=== PATIENT | male | born 1940 | race Caucasian/White ===

== ENCOUNTER 2021-05-02 00:53 | Outpatient (REF) | payer SELFPAY | END 2021-05-02 00:54 | disposition home or self-care (01) | LOC: HO.MMNH1L 00:53 | PROVIDERS: Visit Provider Family Medicine | DX: Z13.89 Encounter for screening for other disorder (principal) ==

== ENCOUNTER 2021-05-16 01:06 | Outpatient (REF) | payer SELFPAY | END 2021-05-16 01:07 | disposition home or self-care (01) | LOC: HO.MMNH1L 01:06 | PROVIDERS: Visit Provider Family Medicine | DX: Z13.89 Encounter for screening for other disorder (principal) ==

== ENCOUNTER 2021-05-23 00:43 | Outpatient (REF) | payer MEDICARE, SELFPAY | END 2021-05-23 00:44 | disposition home or self-care (01) | LOC: HO.MMNH1L 00:43 | PROVIDERS: Visit Provider Family Medicine | DX: Z13.89 Encounter for screening for other disorder (principal) ==

== ENCOUNTER 2021-06-02 14:11 | Emergency (ER) | payer OTHER, MEDICARE, SELFPAY ==
[2021-06-02 14:22] VITALS: BP 105/68; BP 91/40; PULSE 65; PULSE 68; RESP 16; TEMP 36.6; O2SAT 95; BMI 33.8
--- NOTE | 2021-06-02 14:25 | ECG_ITS ---
Test Reason : GEN MED Blood Pressure : / mmHG Vent. Rate : 065 BPM Atrial Rate : 000 BPM P-R Int : 000 ms QRS Dur : 088 ms QT Int : 458 ms P-R-T Axes : 000 -31 -02 degrees QTc Int : 476 ms Atrial fibrillation Left axis deviation Nonspecific T wave abnormality Prolonged QT Abnormal ECG No previous ECGs available Referred By: Elvira Bear Electronically Signed By:Adam Cordero
--- NOTE | 2021-06-02 14:43 | PC.NURSE ---
[facility] [phone]
--- NOTE | 2021-06-02 14:46 | ED.GENADULT ---
HPI - General Adult General Chief complaint: Recheck/Abnormal Lab/Rx Stated complaint: HYPOTENSION DURING DIALYSIS Time Seen by Provider: 06/02/21 14:24 History of Present Illness HPI narrative: Patient is an 81-year-old male with a history in stage renal disease currently on dialysis Sunday. Received his full dialysis on Sunday. Was at dialysis today. Noted to have a low blood pressure of 70/40 initially. Patient has no complaint of chest pain or shortness of breath no dizziness no nausea no vomiting also smoke a cigarette. Has a history of smoking. Has a history of atrial fibrillation. Patient is on Plavix. No other changes in medication no fever no chills no cough no congestion or upper respiratory symptoms no diaphoresis. Patient was on dialysis for about an hour and half sent to hospital for further evaluation of low blood pressure. Related Data Home Medications Medication Instructions Recorded Confirmed acetaminophen 325 mg tablet 650 mg PO Q6H PRN 03/29/20 03/29/20 allopurinol 100 mg tablet 100 mg PO BID 03/29/20 03/29/20 amlodipine 10 mg tablet 10 mg PO DAILY 03/29/20 03/29/20 aspirin 81 mg tablet 81 mg PO DAILY 03/29/20 03/29/20 atorvastatin 40 mg tablet 40 mg PO DAILY 03/29/20 03/29/20 clopidogrel 75 mg tablet 75 mg PO DAILY 03/29/20 03/29/20 ferrous sulfate 325 mg (65 mg mg 03/29/20 iron) tablet folic acid 1 mg tablet 1 mg PO DAILY 03/29/20 03/29/20 metoprolol succinate 50 mg 50 mg PO DAILY 03/29/20 03/29/20 tablet,extended release 24 hr multivitamin 1 tab PO QAM 03/29/20 03/29/20 torsemide 20 mg tablet 20 mg PO DAILY 03/29/20 03/29/20 Allergies Allergy/AdvReac Type Severity Reaction Status Date / Time No Known Allergies Allergy Verified 03/29/20 14:40 [No Known Allergies*] Review of Systems Review of Systems: Positive for low blood pressure no chest pain or shortness breath no dizziness no nausea no vomiting no systemic complaints Yes all other systems are reviewed and are negative PMFSH Past Medical History Attestation statement: The following information was validated with the patient. Medical History Macrocytic anemia MDS (myelodysplastic syndrome) Stage 3 chronic kidney disease Social History Social History Alcohol intake: current Alcohol intake frequency: 3 or more drinks per day Alcohol type: hard liquor Patient Tobacco Use Status: Current everyday Tobacco user Use of substances other than those prescribed or required for medical reasons: No Advance Directives: Yes Advance Directives Information Provided: No Advance Directives on File: No Physical Exam Vital Signs: Vital Signs: Last Vital Signs Temp 97.6 F 06/02/21 19:19 Pulse 54 06/02/21 19:19 Resp 12 06/02/21 19:19 BP 115/53 L 06/02/21 19:19 Pulse Ox 97 06/02/21 19:19 BMI result Body Mass Index 33.8 Appearance: Alert. Oriented X3. No acute distress. Eyes: Pupils equal, round and reactive to light. ENT: Pharynx normal. Neck: Normal inspection. Neck supple. No lymph nodes noted. No crepitus CVS: Normal heart rate and rhythm. Pulses normal. Normal S1 and S2 Respiratory: No respiratory distress. Breath sounds normal. No Wheezing. No rales Abdomen: Soft and nontender. No rigidity. No distention. good BS x4 Skin: Skin warm and dry. Normal skin color. Normal skin turgor. Extremities: No lower extremity edema. Neurovascular intact to all extremities. No Lacerations. No Rash Neuro: Oriented X 3. No motor deficit. No sensory deficit. Moving all extermities. No slurred speech Medical Decision Making MDM Narrative Medical decision making narrative: Patient presented with hypotension. Given a small bolus of IV fluid. Blood pressure recover nicely. Baseline electrolytes withdrawn the consistent with having end-stage renal disease. In stable condition will discharge home. Will discuss case with Nephrology. Potassium was 4.2 Lab Data Result diagrams: 06/02/21 15:09 06/02/21 18:40 Labs: Lab Results 06/02/21 06/02/21 06/02/21 Range/Units 15:09 15:16 18:40 WBC 8.7 (4.8-10.8) X10*3/uL RBC 3.58 L D (4.60-5.80) X10*6/uL Hgb 10.3 L D (14.0-18.0) g/dl Hct 33.0 L D (42.0-52.0) % MCV 92.2 (80.0-98.0) fL MCH 28.8 (27.0-33.0) pg MCHC 31.2 (31.0-36.0) g/dl RDW 17.7 H (11.0-16.0) % Plt Count 216 (160-400) X10*3/uL MPV 9.6 (9.4-12.4) fL Immature Gran % (Auto) 1.0 H (0.0-0.4) % Neut % (Auto) 72.1 (45-73) % Lymph % (Auto) 10.1 L (20-40) % [place] % (Auto) 12.6 H (2-11) % Eos % (Auto) 4.0 (0-4) % Baso % (Auto) 0.2 (0-2) % Lymph # (Auto) 0.9 L (1.2-4.9) X10*3/uL [place] # (Auto) 1.1 (0.1-1.2) X10*3/uL Eos # (Auto) 0.4 (0.0-0.4) X10*3/uL Baso # (Auto) 0.0 (0.0-0.2) X10*3/uL Abs Immat Gran (auto) 0.09 H (0.00-0.03) X10*3/uL Absolute Neuts (auto) 6.3 (2.0-8.3) x10*3/uL Absolute Nucleated RBC 0.000 (0.0-0.012) X10*3/uL Nucleated RBC % (auto) 0.0 (0.0-0.2) /100WBC VBG pH 7.45 H (7.32-7.43) VBG pCO2 40 mmHg VBG pO2 46 mmHg VBG HCO3 28 H (22-26) mmol/L VBG O2 Saturation 72.0 % VBG Base Excess 3.8 mmol/L Sodium 137 (135-145) mmol/L Potassium 4.2 (3.3-5.1) mmol/L Chloride 98 (96-108) mmol/L Carbon Dioxide 28 (22-29) mmol/L Anion Gap 15 (12-20) BUN 25 H (9-16) mg/dL Creatinine 3.82 H (0.5-1.4) mg/dL Estim Creat Clear Calc 14.4 Estimated GFR 15 Random Glucose 92 D (60-115) mg/dL Calcium 9.0 (8.4-10.2) mg/dL Magnesium 1.7 (1.6-2.6) mg/dL 06/02/21 Range/Units 18:40 WBC (4.8-10.8) X10*3/uL RBC (4.60-5.80) X10*6/uL Hgb (14.0-18.0) g/dl Hct (42.0-52.0) % MCV (80.0-98.0) fL MCH (27.0-33.0) pg MCHC (31.0-36.0) g/dl RDW (11.0-16.0) % Plt Count (160-400) X10*3/uL MPV (9.4-12.4) fL Immature Gran % (Auto) (0.0-0.4) % Neut % (Auto) (45-73) % Lymph % (Auto) (20-40) % [place] % (Auto) (2-11) % Eos % (Auto) (0-4) % Baso % (Auto) (0-2) % Lymph # (Auto) (1.2-4.9) X10*3/uL [place] # (Auto) (0.1-1.2) X10*3/uL Eos # (Auto) (0.0-0.4) X10*3/uL Baso # (Auto) (0.0-0.2) X10*3/uL Abs Immat Gran (auto) (0.00-0.03) X10*3/uL Absolute Neuts (auto) (2.0-8.3) x10*3/uL Absolute Nucleated RBC (0.0-0.012) X10*3/uL Nucleated RBC % (auto) (0.0-0.2) /100WBC VBG pH (7.32-7.43) VBG pCO2 mmHg VBG pO2 mmHg VBG HCO3 (22-26) mmol/L VBG O2 Saturation % VBG Base Excess mmol/L Sodium (135-145) mmol/L Potassium (3.3-5.1) mmol/L Chloride (96-108) mmol/L Carbon Dioxide (22-29) mmol/L Anion Gap (12-20) BUN (9-16) mg/dL Creatinine (0.5-1.4) mg/dL Estim Creat Clear Calc Estimated GFR Random Glucose (60-115) mg/dL Calcium 9.0 (8.4-10.2) mg/dL Magnesium (1.6-2.6) mg/dL Discharge Plan Discharge Clinical Impression: ESRD (end stage renal disease) Patient Disposition: Home, Self-Care Instructions: Chronic Kidney Disease Diet (DC), End Stage Kidney Disease (ED) Prescriptions: No Action multivitamin Tablet 1 tab PO QAM 0RF atorvastatin 40 mg Tablet 40 mg PO DAILY 0RF acetaminophen 325 mg Tablet 650 mg PO Q6H PRN (Reason: Pain) 0RF torsemide 20 mg Tablet 20 mg PO DAILY 0RF metoprolol succinate 50 mg Tablet Extended Release 24 Hr 50 mg PO DAILY 0RF clopidogrel 75 mg Tablet 75 mg PO DAILY 0RF allopurinol 100 mg Tablet 100 mg PO BID 0RF amlodipine 10 mg Tablet 10 mg PO DAILY 0RF ferrous sulfate 325 mg (65 mg iron) Tablet 0RF folic acid 1 mg Tablet 1 mg PO DAILY 0RF aspirin 81 mg Tablet 81 mg PO DAILY 0RF Referrals: Magalis Razo MD [Primary Care Provider] - 2 days (Please go to dialysis in 2 days.)
[2021-06-02 15:14] VITALS: BP 98/48; PULSE 63; RESP 18; TEMP 36.4; O2SAT 98
[2021-06-02 15:16] LABS: MANUAL DIFF FLAG NO
--- NOTE | 2021-06-02 15:21 | PC.NURSE ---
axox3. skin pwd. denies all sx. had small bout of diarrhea just now, incontinent. states this has not been happening at home. eager to leave. wants to smoke. offered nicorette etc but declines.
[2021-06-02] MEDS: 0.9 % Sodium Chloride 500 ML 999 ML IV (15:23)
[2021-06-02 15:24] LABS: VBG Base Excess 3.8 mmol/L; VBG HCO3 28 mmol/L (22-26); VBG pCO2 40 mmHg; VBG pH 7.45 (7.32-7.43); VBG pO2 46 mmHg
[2021-06-02 15:25] LABS: Venous Blood Gas Refer to POC result
[2021-06-02 15:32] LABS: Basophils Percent Auto 0.2 % (0-2); Eosinophils Absolute Auto 0.4 X10*3/uL (0.0-0.4); Hemoglobin 10.3 g/dl (14.0-18.0); Imm Gran Abs Auto 0.09 X10*3/uL (0.00-0.03); Lymphocytes Absolute Auto 0.9 X10*3/uL (1.2-4.9); Lymphocytes Percent Auto 10.1 % (20-40); Mean Corpuscular HGB Conc 31.2 g/dl (31.0-36.0); Mean Corpuscular Hemoglobin 28.8 pg (27.0-33.0); Mean Corpuscular Volume 92.2 fL (80.0-98.0); Mean Platelet Volume 9.6 fL (9.4-12.4); Monocytes Absolute Auto 1.1 X10*3/uL (0.1-1.2); Monocytes Percent Auto 12.6 % (2-11); Neutrophils Absolute Auto 6.3 x10*3/uL (2.0-8.3); Neutrophils Percent Auto 72.1 % (45-73); Platelet Count 216 X10*3/uL (160-400); Red Blood Count 3.58 X10*6/uL (4.60-5.80); Red Cell Distribution Width 17.7 % (11.0-16.0); White Blood Count 8.7 X10*3/uL (4.8-10.8)
[2021-06-02 17:14] VITALS: BP 146/66; PULSE 60; RESP 19; TEMP 36.4; O2SAT 99
[2021-06-02 19:11] LABS: Anion Gap 15 (12-20); Blood Urea Nitrogen 25 mg/dL (9-16); Carbon Dioxide 28 mmol/L (22-29); Chloride 98 mmol/L (96-108); Creatinine Clr Calc Pharmacy 14.4; Estimated Glomerular Filt Rate 15; Glucose Random 92 mg/dL (60-115); Magnesium 1.7 mg/dL (1.6-2.6); Potassium 4.2 mmol/L (3.3-5.1); Sodium 137 mmol/L (135-145)
[2021-06-02 19:19] VITALS: BP 115/53; PULSE 54; RESP 12; TEMP 36.4; O2SAT 97
[2021-06-02 20:00] VITALS: BP 104/50; PULSE 51; RESP 16; O2SAT 98
== END 2021-06-02 20:07 | disposition home or self-care (01) ==
PROVIDERS: Emergency Provider Emergency Medicine Emergency Medical Services; PCP Internal Medicine
DX: N18.6 End stage renal disease (principal); R79.89 Other specified abnormal findings of blood chemistry; I95.3 Hypotension of hemodialysis; F17.210 Nicotine dependence, cigarettes, uncomplicated; Z79.899 Other long term (current) drug therapy; Z71.6 Tobacco abuse counseling; Z99.2 Dependence on renal dialysis
CPT/HCPCS: 36415; 80048; 82310; 82803; 83735; 85025; 93005; 99284

== ENCOUNTER 2021-09-16 12:29 | Observation (INO) | payer OTHER, SELFPAY ==
--- NOTE | ~2021-09-16 | XR_ITS ---
EXAMINATION: XR CHEST CLINICAL INFORMATION: Shortness of breath. Bradycardia. COMPARISON: Previous chest x-ray July 2013 TECHNIQUE: Frontal view of the chest was obtained. FINDINGS: The cardiac silhouette is enlarged. There is a right jugular dialysis catheter with tip projecting over the cavoatrial junction. There is a new small left pleural effusion. There is atelectasis or consolidation of the adjacent left lung base. The lungs are otherwise clear. There is no right pleural effusion. There is no pneumothorax. XR/XR chest 1V IMPRESSION: Enlarged cardiac silhouette. New small left pleural effusion and adjacent left lung base atelectasis or consolidation.
--- NOTE | 2021-09-16 13:33 | ECG_ITS ---
Test Reason : low heart rate Blood Pressure : / mmHG Vent. Rate : 040 BPM Atrial Rate : 000 BPM P-R Int : 000 ms QRS Dur : 088 ms QT Int : 480 ms P-R-T Axes : 000 -13 012 degrees QTc Int : 391 ms Atrial fibrillation with slow ventricular response Low voltage QRS Nonspecific T wave abnormality Abnormal ECG When compared with ECG of 02-JUN-2021 14:35, Vent. rate has decreased BY 25 BPM Nonspecific T wave abnormality, worse in Lateral leads QT has shortened Referred By: Generic ED Physician Electronically Signed By:Adam Cordero
[2021-09-16 13:49] VITALS: BP 117/40; PULSE 38; RESP 16; TEMP 35.9; O2SAT 95; BMI 18.4
[2021-09-16 15:00] LABS: MANUAL DIFF FLAG NO
[2021-09-16 15:01] LABS: Basophils Percent Auto 0.5 % (0-2); Eosinophils Absolute Auto 0.1 X10*3/uL (0.0-0.4); Eosinophils Percent Auto 1.5 % (0-4); Hematocrit 31.3 % (42.0-52.0); Hemoglobin 9.9 g/dl (14.0-18.0); Imm Gran Abs Auto 0.03 X10*3/uL (0.00-0.03); Imm Gran Pct Auto 0.5 % (0.0-0.4); Lymphocytes Absolute Auto 1.5 X10*3/uL (1.2-4.9); Mean Corpuscular HGB Conc 31.6 g/dl (31.0-36.0); Mean Corpuscular Hemoglobin 31.2 pg (27.0-33.0); Mean Corpuscular Volume 98.7 fL (80.0-98.0); Mean Platelet Volume 9.3 fL (9.4-12.4); Monocytes Absolute Auto 0.7 X10*3/uL (0.1-1.2); Neutrophils Absolute Auto 3.2 x10*3/uL (2.0-8.3); Neutrophils Percent Auto 57.5 % (45-73); Platelet Count 185 X10*3/uL (160-400); Red Blood Count 3.17 X10*6/uL (4.60-5.80); White Blood Count 5.5 X10*3/uL (4.8-10.8)
[2021-09-16 15:09] LABS: Prothrombin Time 11.8 SEC (9.9-13.0)
[2021-09-16 15:12] LABS: Partial Thromboplastin Time 36.1 SEC (24.1-38.0)
--- NOTE | 2021-09-16 15:20 | ED_ITS ---
HPI - General Adult General Chief complaint: General Medical Stated complaint: low heart beart Time Seen by Provider: 09/16/21 14:30 Source: patient Mode of arrival: ambulatory Limitations: no limitations History of Present Illness HPI narrative: 81 yo male with history of atrial fibrillation, ESRD on HD, myelodysplastic syndrome, chronic anemia who presents to the ER for evaluation of low heart rate when he arrived to go to dialysis today. He reports his HR were in the 30's. He was not dialyzed. complaint: bradycardia Onset (ago): unknown Related Data Home Medications Medication Instructions Recorded Confirmed acetaminophen 325 mg tablet 650 mg PO Q6H PRN 03/29/20 03/29/20 allopurinol 100 mg tablet 100 mg PO BID 03/29/20 03/29/20 amlodipine 10 mg tablet 10 mg PO DAILY 03/29/20 03/29/20 aspirin 81 mg tablet 81 mg PO DAILY 03/29/20 03/29/20 atorvastatin 40 mg tablet 40 mg PO DAILY 03/29/20 03/29/20 clopidogrel 75 mg tablet 75 mg PO DAILY 03/29/20 03/29/20 ferrous sulfate 325 mg (65 mg mg 03/29/20 iron) tablet folic acid 1 mg tablet 1 mg PO DAILY 03/29/20 03/29/20 metoprolol succinate 50 mg 50 mg PO DAILY 03/29/20 03/29/20 tablet,extended release 24 hr multivitamin 1 tab PO QAM 03/29/20 03/29/20 torsemide 20 mg tablet 20 mg PO DAILY 03/29/20 03/29/20 Allergies Allergy/AdvReac Type Severity Reaction Status Date / Time No Known Allergies Allergy Verified 03/29/20 14:40 [No Known Allergies*] [facility] Past Medical History Medical History Macrocytic anemia MDS (myelodysplastic syndrome) Stage 3 chronic kidney disease Social History Social History Alcohol intake: current Alcohol intake frequency: 3 or more drinks per day A lcohol type: hard liquor Patient Tobacco Use Status: Current everyday Tobacco user Physical Exam ED Vital Signs: Vital Signs - 24 hr 09/16/21 13:49 Temperature 96.7 F L Pulse Rate 38 L Respiratory Rate 16 Blood Pressure 117/40 L Pulse Oximetry 95 BMI result Body Mass Index 18.4 Medical Decision Making Lab Data Result diagrams: 09/16/21 14:53 09/16/21 14:53 Labs: Lab Results 09/16/21 09/16/21 09/16/21 Range/Units 14:53 14:53 14:53 WBC 5.5 (4.8-10.8) X10*3/uL RBC 3.17 L (4.60-5.80) X10*6/uL Hgb 9.9 L (14.0-18.0) g/dl Hct 31.3 L (42.0-52.0) % MCV 98.7 H (80.0-98.0) fL MCH 31.2 (27.0-33.0) pg MCHC 31.6 (31.0-36.0) g/dl RDW 21.0 H (11.0-16.0) % Plt Count 185 (160-400) X10*3/uL MPV 9.3 L (9.4-12.4) fL Immature Gran % (Auto) 0.5 H (0.0-0.4) % Neut % (Auto) 57.5 (45-73) % Lymph % (Auto) 27.0 (20-40) % [place] % (Auto) 13.0 H (2-11) % Eos % (Auto) 1.5 (0-4) % Baso % (Auto) 0.5 (0-2) % Lymph # (Auto) 1.5 (1.2-4.9) X10*3/uL [place] # (Auto) 0.7 (0.1-1.2) X10*3/uL Eos # (Auto) 0.1 (0.0-0.4) X10*3/uL Baso # (Auto) 0.0 (0.0-0.2) X10*3/uL Abs Immat Gran (auto) 0.03 (0.00-0.03) X10*3/uL Absolute Neuts (auto) 3.2 (2.0-8.3) x10*3/uL Absolute Nucleated RBC 0.000 (0.0-0.012) X10*3/uL Nucleated RBC % (auto) 0.0 (0.0-0.2) /100WBC PT 11.8 (9.9-13.0) SEC INR 1.0 (0.9-1.1) APTT 36.1 (24.1-38.0) SEC Discharge Plan Discharge Prescriptions: No Action multivitamin Tablet 1 tab PO QAM 0RF atorvastatin 40 mg Tablet 40 mg PO DAILY 0RF acetaminophen 325 mg Tablet 650 mg PO Q6H PRN (Reason: Pain) 0RF torsemide 20 mg Tablet 20 mg PO DAILY 0RF metoprolol succinate 50 mg Tablet Extended Release 24 Hr 50 mg PO DAILY 0RF clopidogrel 75 mg Tablet 75 mg PO DAILY 0RF allopurinol 100 mg Tablet 100 mg PO BID 0RF amlodipine 10 mg Tablet 10 mg PO DAILY 0RF ferrous sulfate 325 mg (65 mg iron) Tablet 0RF folic acid 1 mg Tablet 1 mg PO DAILY 0RF aspirin 81 mg Tablet 81 mg PO DAILY 0RF
[2021-09-16 15:22] LABS: B Type Natriuretic Peptide 1775 pg/mL (<100); Troponin-I High Sensitivity 21.5 ng/L (<3.5-35.0)
[2021-09-16 15:23] LABS: Anion Gap 15 (12-20); Blood Urea Nitrogen 21 mg/dL (9-16); Calcium 9.2 mg/dL (8.4-10.2); Carbon Dioxide 28 mmol/L (22-29); Chloride 91 mmol/L (96-108); Creatinine Clr Calc Pharmacy 9.9; Estimated Glomerular Filt Rate 12; Glucose Random 111 mg/dL (60-115); Potassium 4.4 mmol/L (3.3-5.1); Sodium 130 mmol/L (135-145)
--- NOTE | 2021-09-16 15:32 | ED_ITS ---
HPI - General Adult General Chief complaint: General Medical Stated complaint: low heart beart Time Seen by Provider: 09/16/21 14:30 Source: patient Mode of arrival: ambulatory Limitations: no limitations History of Present Illness HPI narrative: 81 years old male came in for evaluation of slow heart rate. Patient with history of end-stage renal disease on dialysis 3 times a week, noted by the dialysis nurse today of a slow heart rate in the 40s, patient was sent to the hospital for further evaluation patient did not receive dialysis today. Patient otherwise decline chest pain or difficulty breathing, patient is not aware of history of atrial fibrillation not taking anticoagulation patient on metoprolol 50 mg and amlodipine 10 mg. Related Data Home Medications Medication Instructions Recorded Confirmed acetaminophen 325 mg tablet 650 mg PO Q6H PRN 03/29/20 03/29/20 allopurinol 100 mg tablet 100 mg PO BID 03/29/20 03/29/20 amlodipine 10 mg tablet 10 mg PO DAILY 03/29/20 03/29/20 aspirin 81 mg tablet 81 mg PO DAILY 03/29/20 03/29/20 atorvastatin 40 mg tablet 40 mg PO DAILY 03/29/20 03/29/20 clopidogrel 75 mg tablet 75 mg PO DAILY 03/29/20 03/29/20 ferrous sulfate 325 mg (65 mg mg 03/29/20 iron) tablet folic acid 1 mg tablet 1 mg PO DAILY 03/29/20 03/29/20 metoprolol succinate 50 mg 50 mg PO DAILY 03/29/20 03/29/20 tablet,extended release 24 hr multivitamin 1 tab PO QAM 03/29/20 03/29/20 torsemide 20 mg tablet 20 mg PO DAILY 03/29/20 03/29/20 Allergies Allergy/AdvReac Type Severity Reaction Status Date / Time No Known Allergies Allergy Verified 03/29/20 14:40 [No Known Allergies*] Review of Systems Review of Systems: All other systems are reviewed and are negative Constitutional: Reports as per HPI and Reports no additional constitutional complaints Eyes: Reports as per HPI and Reports no additional eye complaints Reports system reviewed and no additional complaints, except as documented Cardiovascular: Reports as per HPI and Reports no additional cardiovascular complaints Respiratory: Reports as per HPI and Reports no additional respiratory complaints Gastrointestinal: Reports as per HPI and Reports no additional gastrointestinal complaints Genitourinary: Reports no additional female genitourinary complaints Musculoskeletal: Reports no additional musculoskeletal complaints Skin/Breast: Reports system reviewed and no additional complaints, except as docu Psychiatric: Reports no additional psychiatric complaints Endocrine: Reports no additional endocrine complaints Hematologic/Lymphatic: Reports no additional hematologic/lymphatic complaints Allergic/Immunologic: Reports no additional allergic/immunologic complaints Reports system reviewed and no additional complaints, except as documented and Reports Abnormal speech present FOR[facility]LY [facility], [facility] Past Medical History Medical History Macrocytic anemia MDS (myelodysplastic syndrome) Stage 3 chronic kidney disease Social History Social History Alcohol intake: current Alcohol intake frequency: 3 or more drinks per day Alcohol type: hard liquor Patient Tobacco Use Status: Current everyday Tobacco user Advance Directives: Yes Advance Directives Information Provided: No Advance Directives on File: No Physical Exam ED Vital Signs: Vital Signs - 24 hr 09/16/21 13:49 09/16/21 15:33 Temperature 96.7 F L Pulse Rate 38 L 36 L Respiratory Rate 16 18 Blood Pressure 117/40 L 133/49 L Pulse Oximetry 95 91 L BMI result Body Mass Index 18.4 Vital signs have been reviewed as appeared to be correct. Blood pressure norm al. Bradycardia. rate normal. Temperature normal. Oxygen saturation normal. Appearance: Alert. Oriented X3. No acute distress. Head: Normal external exam. Normocephalic. Atraumatic. No Hood signs noted. No raccoon eyes noted Eyes: PERRLA. EOMI. Conjunctiva and sclera normal. Eyelids normal. ENT: TM's Normal. Pharynx normal. Uvula midline. Moist mucous membranes. No trismus noted. No drooling noted. No muffled voice noted. Neck: Normal inspection. Neck supple. FROM. No adenopathy. Thyroid Normal. No meningeal signs. No neck mass noted. CVS: Slow atrial fibrillation. Heart sound normal. No murmurs noted. Pulses normal throughout. Respiratory: No respiratory distress. Painless inspiration. Breath sounds normal. No wheezes/rales/rhonchi noted. Chest nontender. No accessory muscle usage noted or decreased air movement noted. Abdomen: Soft and nontender. Bowel sounds normal in all 4 quadrants. No distention noted. No organomegaly noted. No visible injury noted. Back: No CVA tenderness. Full range of motion noted. Skin: Skin warm and dry. Normal skin color. Normal skin turgor. No rashes/lesions/lacerations noted. Extremities: No lower extremity edema. Extremities exhibit normal range of motion. Extremities nontender. Neuro: Oriented X 3. Cranial nerve exam: II-XII are grossly intact No motor deficit. No sensory deficit. Reflexes normal. Course Course Course Narrative: Assessment and plan. 81 years old male end-stage renal disease on dialysis brought in from dialysis for evaluation of severe bradycardia, patient sustained no symptoms related to his heart rate, the case discussed with Dr. Cordero who recommended to observe the patient for overnight and adjust his medication and to stop metoprolol Patient adamantly diffuse the hospitalization tonight after discussing risks out of bed and discharged against medical advice including severe bradycardia, syncope,asystole, and . Patient fully understood my concerns and he is still going to sign against medical advise. I discussed with the patient to stop metoprolol. Reevaluation(s) Reevaluation #1: I had another discussion with the patient in the presence of his sister, now patient agreed to stay, will admit the patient and hold metoprolol as recommended by Dr. Cordero. Time: 17:09 Reevaluation #2: The case discussed with Dr. Briseno who agreed on the plan also. Time: 17:17 Medical Decision Making Medical Records Medical records reviewed: Yes I reviewed the patient's medical records. Lab Data Lab results reviewed: Yes I reviewed the patient's lab results. Result diagrams: 09/16/21 14:53 09/16/21 14:53 Labs: Lab Results 09/16/21 09/16/21 09/16/21 Range/Units 14:53 14:53 14:53 WBC 5.5 (4.8-10.8) X10*3/uL RBC 3.17 L (4.60-5.80) X10*6/uL Hgb 9.9 L (14.0-18.0) g/dl Hct 31.3 L (42.0-52.0) % MCV 98.7 H (80.0-98.0) fL MCH 31.2 (27.0-33.0) pg MCHC 31.6 (31.0-36.0) g/dl RDW 21.0 H (11.0-16.0) % Plt Count 185 (160-400) X10*3/uL MPV 9.3 L (9.4-12.4) fL Immature Gran % (Auto) 0.5 H (0.0-0.4) % Neut % (Auto) 57.5 (45-73) % Lymph % (Auto) 27.0 (20-40) % [place]ell % (Auto) 13.0 H (2-11) % Eos % (Auto) 1.5 (0-4) % Baso % (Auto) 0.5 (0-2) % Lymph # (Auto) 1.5 (1.2-4.9) X10*3/uL [place] # (Auto) 0.7 (0.1-1.2) X10*3/uL Eos # (Auto) 0.1 (0.0-0.4) X10*3/uL Baso # (Auto) 0.0 (0.0-0.2) X10*3/uL Abs Immat Gran (auto) 0.03 (0.00-0.03) X10*3/uL Absolute Neuts (auto) 3.2 (2.0-8.3) x10*3/uL Absolute Nucleated RBC 0.000 (0.0-0.012) X10*3/uL Nucleated RBC % (auto) 0.0 (0.0-0.2) /100WBC PT (9.9-13.0) SEC INR (0.9-1.1) APTT (24.1-38.0) SEC Sodium 130 L (135-145) mmol/L Potassium 4.4 (3.3-5.1) mmol/L Chloride 91 L (96-108) mmol/L Carbon Dioxide 28 (22-29) mmol/L Anion Gap 15 (12-20) BUN 21 H (9-16) mg/dL Creatinine 4.77 H* (0.5-1.4) mg/dL Estim Creat Clear Calc 9.9 Estimated GFR 12 Random Glucose 111 (60-115) mg/dL Calcium 9.2 (8.4-10.2) mg/dL Troponin I High Sens 21.5 (<3.5-35.0) ng/L B-Natriuretic Peptide (<100) pg/mL 05/27/22 05/27/22 05/27/22 Range/Units 14:53 14:53 14:53 WBC (4.8-10.8) X10*3/uL RBC (4.60-5.80) X10*6/uL Hgb (14.0-18.0) g/dl Hct (42.0-52.0) % MCV (80.0-98.0) fL MCH (27.0-33.0) pg MCHC (31.0-36.0) g/dl RDW (11.0-16.0) % Plt Count (160-400) X10*3/uL MPV (9.4-12.4) fL Immature Gran % (Auto) (0.0-0.4) % Neut % (Auto) (45-73) % Lymph % (Auto) (20-40) % [place]ell % (Auto) (2-11) % Eos % (Auto) (0-4) % Baso % (Auto) (0-2) % Lymph # (Auto) (1.2-4.9) X10*3/uL [place] # (Auto) (0.1-1.2) X10*3/uL Eos # (Auto) (0.0-0.4) X10*3/uL Baso # (Auto) (0.0-0.2) X10*3/uL Abs Immat Gran (auto) (0.00-0.03) X10*3/uL Absolute Neuts (auto) (2.0-8.3) x10*3/uL Absolute Nucleated RBC (0.0-0.012) X10*3/uL Nucleated RBC % (auto) (0.0-0.2) /100WBC PT 11.8 (9.9-13.0) SEC INR 1.0 (0.9-1.1) APTT 36.1 (24.1-38.0) SEC Sodium (135-145) mmol/L Potassium (3.3-5.1) mmol/L Chloride (96-108) mmol/L Carbon Dioxide (22-29) mmol/L Anion Gap (12-20) BUN (9-16) mg/dL Creatinine (0.5-1.4) mg/dL Estim Creat Clear Calc Estimated GFR Random Glucose (60-115) mg/dL Calcium (8.4-10.2) mg/dL Troponin I High Sens (<3.5-35.0) ng/L B-Natriuretic Peptide 1775 H (<100) pg/mL Imaging Data Chest x-ray: Attestation: I personally reviewed and interpreted this imaging study as follows: Radiologist's impression: Enlarged cardiac silhouette. New small left pleural effusion and adjacent left lung base atelectasis or consolidation. ECG Data Attestation: I personally reviewed and interpreted this ECG as follows: Interpretation: Atrial fibrillation at 40 beats per minutes, normal intervals. No ST-T ischemic change. Discharge Plan Discharge Clinical Impression: Bradycardia, Atrial fibrillation, new onset Patient Disposition: Admitted As Inpatient
[2021-09-16 15:33] VITALS: BP 133/49; PULSE 36; RESP 18; O2SAT 91
--- NOTE | 2021-09-16 16:37 | PC.NURSE ---
both this rn and md santos have spoke with pt and explained the risks associated with leaving [facility] with his current bradycardia. Pt is caox4 and has competency and capacity to refuse. Risks up to and including were explained to pt whom reports he understands these risks.
[2021-09-16 18:00] VITALS: PULSE 43; RESP 18; O2SAT 99
--- NOTE | 2021-09-16 18:44 | PHA.MEDREC ---
Pharmacy Consult ? Medication Reconciliation Pharmacy has completed the medication reconciliation.
[2021-09-16 19:19] LABS: COVID-19 Test Negative (Negative)
--- NOTE | 2021-09-16 19:31 | PM.IMHP ---
History of Present Illness Date of Service: 09/16/21 Chief Complaint: Bradycardia 81-year-old male with a past medical history of hypertension, hyperlipidemia, ESRD on hemodialysis, myelodysplastic syndrome; presented to the hospital today with a chief complaint of bradycardia. Patient went for his routine hemodialysis -the hemodialysis session patient was noted to have slow heart rate; subsequently patient was sent to the ER for further evaluation. Patient denies any chest pain palpitations lightheadedness or dizziness. Denies any syncopal events; denies any numbness tingling or focal weakness. Review of all other systems is negative except mentioned above ER course: Per ER team patient is asymptomatic; on EKG noted to have slow AFib; discussed with cardiology who suggested to hold the froilan blocking agents and admitted to the hospital for observation. [facility] Medical History Macrocytic anemia MDS (myelodysplastic syndrome) Stage 3 chronic kidney disease Social History Alcohol intake: current Alcohol intake frequency: 3 or more drinks per day Alcohol type: hard liquor Patient Tobacco Use Status: Current everyday Tobacco user Advance Directives: Yes Advance Directives Information Provided: No Advance Directives on File: No Meds Allergies Allergy/AdvReac Type Severity Reaction Status Date / Time No Known Allergies Allergy Verified 03/29/20 14:40 [No Known Allergies*] Active Medications: Current Medications Acetaminophen (Acetaminophen 325 Mg Tablet) 650 mg PO Q6H PRN PRN Reason: Pain, Mild (Pain Scale 1-3) Heparin Sodium (Porcine) (Heparin Sodium,Porcine 5,000 Unit/Ml Vial) 5,000 unit SUBCUT Q8H [facility] Melatonin (Melatonin 3 Mg Tablet) 6 mg PO BEDTIME PRN PRN Reason: Insomnia Pharmacy Consult (Consult Rx Perform Med Rec) 1 each MISCELLANE ONCE PRN PRN Reason: Consult order Senna (Sennosides 8.6 Mg Tablet) 17.2 mg PO BEDTIME PRN PRN Reason: Constipation Sodium Chloride (0.9 % Sodium Chloride Flush 3 Ml Syringe) 3 ml IVFLUSH QSHIFT [facility] Home Medications Medication Instructions Recorded Confirmed Last Taken Type acetaminophen 325 mg tablet 650 mg PO Q6H PRN 03/29/20 09/16/21 Unknown History allopurinol 100 mg tablet 100 mg PO BID 12/07/20 05/27/22 Unknown History aspirin 81 mg tablet 81 mg PO DAILY 03/29/20 09/16/21 Unknown History atorvastatin 40 mg tablet 40 mg PO BEDTIME 03/29/20 09/16/21 Unknown History clopidogrel 75 mg tablet 75 mg PO DAILY 03/29/20 09/16/21 Unknown History ferrous sulfate 325 mg (65 mg 325 mg PO DAILY 03/29/20 09/16/21 Unknown History iron) tablet folic acid 1 mg tablet 1 mg PO DAILY 03/29/20 09/16/21 Unknown History metoprolol succinate 50 mg 50 mg PO DAILY 03/29/20 09/16/21 Unknown History tablet,extended release 24 hr multivitamin 1 tab PO QAM 03/29/20 09/16/21 Unknown History clonidine HCl 0.3 mg tablet 0.3 mg PO SUTUTHSA@0900,2100 09/16/21 09/16/21 Unknown History cyanocobalamin (vitamin B-12) 1,000 mcg PO DAILY 09/16/21 09/16/21 Unknown History 1,000 mcg tablet docusate sodium 100 mg capsule 100 mg PO BID PRN 09/16/21 09/16/21 Unknown History magnesium oxide 400 mg PO DAILY 09/16/21 09/16/21 Unknown History melatonin 3 mg tablet 3 mg PO BEDTIME PRN 09/16/21 09/16/21 Unknown History sevelamer carbonate 800 mg tablet 800 mg PO TID 09/16/21 09/16/21 Unknown History thiamine HCl (vitamin B1) 100 mg 100 mg PO DAILY 09/16/21 09/16/21 Unknown History tablet Physical Exam Vital Signs and Narrative: Vital Signs: Last Vital Signs Temp 96.7 F L 09/16/21 13:49 Pulse 43 L 09/16/21 18:00 Resp 18 09/16/21 18:00 BP 133/49 L 09/16/21 15:33 Pulse Ox 99 09/16/21 18:00 BMI result Body Mass Index 18.4 Gen: Appears be in no acute distress HEENT: NCAT, Moist mucosa. Pulmonary: Vesicular breath sounds, fair air entry CVS: Normal S1-S2 Abdomen: BS+, Soft, Nontender Extremities: Warm well perfused Neuro: Alert and awake. Results Labs CBC and Chem 7: 09/16/21 14:53 09/16/21 14:53 Labs: Laboratory Results - last 24 hr 09/16/21 09/16/21 09/16/21 14:53 14:53 14:53 MCV 98.7 H MCH 31.2 MCHC 31.6 RDW 21.0 H Plt Count 185 MPV 9.3 L Immature Gran % (Auto) 0.5 H Neut % (Auto) 57.5 Lymph % (Auto) 27.0 [place] % (Auto) 13.0 H Eos % (Auto) 1.5 Baso % (Auto) 0.5 Lymph # (Auto) 1.5 [place] # (Auto) 0.7 Eos # (Auto) 0.1 Baso # (Auto) 0.0 Abs Immat Gran (auto) 0.03 Absolute Neuts (auto) 3.2 Absolute Nucleated RBC 0.000 Nucleated RBC % (auto) 0.0 PT INR APTT Anion Gap 15 Estim Creat Clear Calc 9.9 Estimated GFR 12 Random Glucose 111 Calcium 9.2 Troponin I High Sens 21.5 B-Natriuretic Peptide COVID-19 (JOSE ALFREDO) COVID-MESI 09/16/21 09/16/21 09/16/21 14:53 14:53 14:53 MCV MCH MCHC RDW Plt Count MPV Immature Gran % (Auto) Neut % (Auto) Lymph % (Auto) [place] % (Auto) Eos % (Auto) Baso % (Auto) Lymph # (Auto) [place] # (Auto) Eos # (Auto) Baso # (Auto) Abs Immat Gran (auto) Absolute Neuts (auto) Absolute Nucleated RBC Nucleated RBC % (auto) PT 11.8 INR 1.0 APTT 36.1 Anion Gap Estim Creat Clear Calc Estimated GFR Random Glucose Calcium Troponin I High Sens B-Natriuretic Peptide 1775 H COVID-19 (JOSE ALFREDO) COVID-MESI 09/16/21 18:55 MCV MCH MCHC RDW Plt Count MPV Immature Gran % (Auto) Neut % (Auto) Lymph % (Auto) [place] % (Auto) Eos % (Auto) Baso % (Auto) Lymph # (Auto) [place] # (Auto) Eos # (Auto) Baso # (Auto) Abs Immat Gran (auto) Absolute Neuts (auto) Absolute Nucleated RBC Nucleated RBC % (auto) PT INR APTT Anion Gap Estim Creat Clear Calc Estimated GFR Random Glucose Calcium Troponin I High Sens B-Natriuretic Peptide COVID-19 (JOSE ALFREDO) Negative COVID-19 Clin Com See Note Imaging Radiologist's Impressions: Impressions Chest X-Ray 09/16/21 15:03 IMPRESSION: Enlarged cardiac silhouette. New small left pleural effusion and adjacent left lung base atelectasis or consolidation. Assessment and Plan (1) Bradycardia: Status: Acute Plan 81-year-old male with a past medical history of hypertension, hyperlipidemia, ESRD on hemodialysis, myelodysplastic syndrome; presented to the hospital today with a chief complaint of bradycardia. Bradycardia: Patient heart rate 30-50. EKG showed a slow AFib Patient asymptomatic Pacer pads on Hold patient's clonidine and metoprolol. Cardiology consult was notified history of ESRD: Patient on hemodialysis. Patient missed hemodialysis session today. Nephrology was notified. History of hyperlipidemia: Continue home statin DVT prophylaxis: Subcu heparin Code status: Full code Quality Stroke Does the patient have a stroke diagnosis?: No VTE Prior VTE?: No VTE Risk Level:: Medical - moderate - high VTE Device Contraindication: Treatment Not Indicated VTE Drug Contraindication: N/A - Med Ordered
[2021-09-16 19:34] VITALS: BP 158/67; PULSE 40; RESP 19; TEMP 36.8; O2SAT 98
[2021-09-16] MEDS: Atorvastatin Calcium 40 MG TABLET PO (22:30)
[2021-09-17] VITALS (7 sets, daily range): BP systolic 120–136; BP diastolic 46–72; PULSE 37–44; RESP 14–24; TEMP 36.7; O2SAT 99–100
[2021-09-17] MEDS: Melatonin 3 MG TABLET 6 MG PO (02:37)
[2021-09-17] MEDS: 0.9 % Sodium Chloride Flush 3 ML SYRINGE IVFLUSH (02:39)
[2021-09-17] MEDS: Heparin Sodium,Porcine 5,000 UNIT/ML VIAL 5000 UNIT SUBCUT (02:52)
--- NOTE | 2021-09-17 05:22 | PC.NURSE ---
Patients personal care aide:Sarah until 5pm After 5pm Son Rigoberto:
[2021-09-17 07:29] LABS: Basophils Percent Auto 0.7 % (0-2); Eosinophils Absolute Auto 0.1 X10*3/uL (0.0-0.4); Eosinophils Percent Auto 2.3 % (0-4); Hematocrit 29.3 % (42.0-52.0); Hemoglobin 9.5 g/dl (14.0-18.0); Imm Gran Abs Auto 0.03 X10*3/uL (0.00-0.03); Imm Gran Pct Auto 0.7 % (0.0-0.4); Lymphocytes Absolute Auto 1.2 X10*3/uL (1.2-4.9); Lymphocytes Percent Auto 26.5 % (20-40); MANUAL DIFF FLAG SCAN; Mean Corpuscular HGB Conc 32.4 g/dl (31.0-36.0); Mean Corpuscular Volume 98.7 fL (80.0-98.0); Mean Platelet Volume 9.9 fL (9.4-12.4); Monocytes Absolute Auto 0.9 X10*3/uL (0.1-1.2); Monocytes Percent Auto 21.3 % (2-11); Neutrophils Absolute Auto 2.1 x10*3/uL (2.0-8.3); Neutrophils Percent Auto 48.5 % (45-73); Platelet Count 170 X10*3/uL (160-400); Red Blood Count 2.97 X10*6/uL (4.60-5.80); Red Cell Distribution Width 20.6 % (11.0-16.0); SCAN SMEAR FLAG 1; White Blood Count 4.4 X10*3/uL (4.8-10.8)
[2021-09-17 07:48] LABS: Anion Gap 17 (12-20); Blood Urea Nitrogen 27 mg/dL (9-16); Calcium 8.6 mg/dL (8.4-10.2); Carbon Dioxide 23 mmol/L (22-29); Chloride 96 mmol/L (96-108); Creatinine Clr Calc Pharmacy 8.6; Estimated Glomerular Filt Rate 10; Glucose Random 100 mg/dL (60-115); Potassium 4.1 mmol/L (3.3-5.1); Sodium 132 mmol/L (135-145)
[2021-09-17 07:57] LABS: SLIDE REVIEW VERIFIED
[2021-09-17] MEDS: Thiamine HCL 100 MG TABLET PO (08:00)
[2021-09-17] MEDS: Cyanocobalamin (Vitamin B-12) 1,000 MCG TABLET 1000 MCG PO (08:00)
[2021-09-17] MEDS: Folic Acid 1 MG TABLET PO (08:00)
[2021-09-17] MEDS: Magnesium Oxide 400 MG TABLET PO (08:00)
[2021-09-17] MEDS: Clopidogrel Bisulfate 75 MG TABLET PO (08:01)
[2021-09-17] MEDS: Multivitamin TABLET 1 TAB PO (08:01)
[2021-09-17] MEDS: Aspirin Enteric Coated 81 MG TABLET.DR PO (08:01)
[2021-09-17] MEDS: Sevelamer Carbonate Tablet 800 MG TABLET PO ×2 (08:01→14:16)
[2021-09-17] MEDS: Ferrous Sulfate 324 MG TABLET.DR PO (08:01)
--- NOTE | 2021-09-17 09:25 | MHC.CM.PN ---
Addendum entered by Gwendolyn Schmidt 09/17/21 11:09: PT REPORTS HE NO LONGER GOES TO THE PCP OFFICE HE REPORTS HE WAS ACTIVE WITH MOIRA JUARES HOWEVER HE IS NOW SEEN AT HOME BY NURSES CM UNABLE TO CONFIRM DUE TO [facility] Original Note: PT REPORTS SINCE HIS WAS ADMITTED TO LTC IN A LONGTERM, HIS SON HAS MOVED IN WITH HIM. 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 CM WILL FOLLOW UP FOR PCP INFO [facility] RIGHT[facility] DELIVERED, COPY SENT TO [facility] CURRENT DC PLAN IS HOME WITH RESUMPTION OF SERVICES FAMILY TO TRANSPORT
--- NOTE | 2021-09-17 10:23 | HO.PM.IMPN ---
Subjective Subjective Date of Service: 09/17/21 Review of Systems Follow up bradycardia NO pain, or sob wanting to go home Physical Exam Vital Signs: Vital Signs: Last Vital Signs Temp 98.2 F 09/16/21 19:34 Pulse 44 L 09/17/21 07:08 Resp 18 09/17/21 07:08 BP 132/57 L 09/17/21 07:08 Pulse Ox 100 09/17/21 07:08 BMI result Body Mass Index 18.4 Appearing in no acute distress lung sounds are clear to auscultation heart regular rate rhythm, clear S1, S2 positive bowel sounds, abdomen is soft, nontender neuro patient is alert x3, no focal deficits Objective Data Active Medications Acetaminophen (Acetaminophen 325 Mg Tablet) 650 mg PO Q6H PRN PRN Reason: Pain, Mild (Pain Scale 1-3) Aspirin (Aspirin Enteric Coated 81 Mg Tablet.) 81 mg PO DAILY [facility] Last Admin: 09/17/21 08:01 Dose: 81 mg Documented by: MARCO Atorvastatin Calcium (Atorvastatin Calcium 40 Mg Tablet) 40 mg PO BEDTIME [facility] Last Admin: 09/16/21 22:30 Dose: 40 mg Documented by: CHESTER Clopidogrel Bisulfate (Clopidogrel Bisulfate 75 Mg Tablet) 75 mg PO DAILY [facility] Last Admin: 09/17/21 08:01 Dose: 75 mg Documented by: MARCO Cyanocobalamin (Cyanocobalamin (Vitamin B-12) 1,000 Mcg Tablet) 1,000 mcg PO DAILY [facility] Last Admin: 09/17/21 08:00 Dose: 1,000 mcg Documented by: MARCO Docusate Sodium (Docusate Sodium 100 Mg Capsule) 100 mg PO BID PRN PRN Reason: Constipation Ferrous Sulfate (Ferrous Sulfate 324 Mg Tablet.) 324 mg PO DAILY [facility] Last Admin: 09/17/21 08:01 Dose: 324 mg Documented by: MARCO Folic Acid (Folic Acid 1 Mg Tablet) 1 mg PO DAILY [facility] Last Admin: 09/17/21 08:00 Dose: 1 mg Documented by: MARCO Heparin Sodium (Porcine) (Heparin Sodium,Porcine 5,000 Unit/Ml Vial) 5,000 unit SUBCUT Q8H [facility] Last Admin: 09/17/21 02:52 Dose: 5,000 unit Documented by: LUDWIG Magnesium Oxide (Magnesium Oxide 400 Mg Tablet) 400 mg PO DAILY [facility] Last Admin: 09/17/21 08:00 Dose: 400 mg Documented by: MARCO Melatonin (Melatonin 3 Mg Tablet) 6 mg PO BEDTIME PRN PRN Reason: Insomnia Last Admin: 09/17/21 02:37 Dose: 6 mg Documented by: LUDWIG Multivitamins/Vitamin C (Multivitamin Tablet) 1 tab PO DAILY [facility] Last Admin: 09/17/21 08:01 Dose: 1 tab Documented by: MARCO Pharmacy Consult (Consult Rx Perform Med Rec) 1 each MISCELLANE ONCE PRN PRN Reason: Consult order Senna (Sennosides 8.6 Mg Tablet) 17.2 mg PO BEDTIME PRN PRN Reason: Constipation Sevelamer Carbonate (Sevelamer Carbonate Tablet 800 Mg Tablet) 800 mg PO TIDWM [facility] Last Admin: 09/17/21 08:01 Dose: 800 mg Documented by: MARCO Sodium Chloride (0.9 % Sodium Chloride Flush 3 Ml Syringe) 3 ml IVFLUSH QSHIFT [facility] Last Admin: 09/17/21 06:43 Dose: Not Given Documented by: MARCO Non-Admin Reason: Med Not Available Thiamine HCl (Thiamine Hcl 100 Mg Tablet) 100 mg PO DAILY [facility] Last Admin: 09/17/21 08:00 Dose: 100 mg Documented by: MARCO Labs CBC & Chem 7: 09/17/21 06:37 09/17/21 06:37 Labs: Laboratory Results - last 24 hr 09/16/21 09/16/21 09/16/21 14:53 14:53 14:53 MCV 98.7 H MCH 31.2 MCHC 31.6 RDW 21.0 H Plt Count 185 MPV 9.3 L Immature Gran % (Auto) 0.5 H Neut % (Auto) 57.5 Lymph % (Auto) 27.0 [place] % (Auto) 13.0 H Eos % (Auto) 1.5 Baso % (Auto) 0.5 Lymph # (Auto) 1.5 [place] # (Auto) 0.7 Eos # (Auto) 0.1 Baso # (Auto) 0.0 Abs Immat Gran (auto) 0.03 Absolute Neuts (auto) 3.2 Absolute Nucleated RBC 0.000 Nucleated RBC % (auto) 0.0 Smear Tech's Comments PT INR APTT Anion Gap 15 Estim Creat Clear Calc 9.9 Estimated GFR 12 Random Glucose 111 Calcium 9.2 Troponin I High Sens 21.5 B-Natriuretic Peptide COVID-19 (JOSE ALFREDO) [employer] [facility] [employer] 09/16/21 09/16/21 09/16/21 14:53 14:53 14:53 MCV MCH MCHC RDW Plt Count MPV Immature Gran % (Auto) Neut % (Auto) Lymph % (Auto) [place] % (Auto) Eos % (Auto) Baso % (Auto) Lymph # (Auto) [place] # (Auto) Eos # (Auto) Baso # (Auto) Abs Immat Gran (auto) Absolute Neuts (auto) Absolute Nucleated RBC Nucleated RBC % (auto) Smear Tech's Comments PT 11.8 INR 1.0 APTT 36.1 Anion Gap Estim Creat Clear Calc Estimated GFR Random Glucose Calcium Troponin I High Sens B-Natriuretic Peptide 1775 H COVID-19 (JOSE ALFREDO) [employer] 09/16/21 09/17/21 09/17/21 18:55 06:37 06:37 MCV 98.7 H MCH 32.0 MCHC 32.4 RDW 20.6 H Plt Count 170 MPV 9.9 Immature Gran % (Auto) 0.7 H Neut % (Auto) 48.5 Lymph % (Auto) 26.5 [place] % (Auto) 21.3 H Eos % (Auto) 2.3 Baso % (Auto) 0.7 Lymph # (Auto) 1.2 [place] # (Auto) 0.9 Eos # (Auto) 0.1 Baso # (Auto) 0.0 Abs Immat Gran (auto) 0.03 Absolute Neuts (auto) 2.1 Absolute Nucleated RBC 0.000 Nucleated RBC % (auto) 0.0 Smear Tech's Comments VERIFIED PT INR APTT Anion Gap 17 Estim Creat Clear Calc 8.6 Estimated GFR 10 Random Glucose 100 Calcium 8.6 D Troponin I High Sens B-Natriuretic Peptide COVID-19 (JOSE ALFREDO) Negative [employer] [facility] [employer] [facility] [employer] [facility] See Note Assessment and Plan (1) Bradycardia: Status: Acute Plan 81-year-old male with a past medical history of hypertension, hyperlipidemia, ESRD on hemodialysis, myelodysplastic syndrome; presented to the hospital today with a chief complaint of bradycardia.? Bradycardia Patient heart rate 30-50.? EKG showed a slow AFib Patient asymptomatic Hold patient's clonidine and metoprolol.? Cardiology following rec ambulating patient to assess for hr response if he continues with bradycardia he may need pacer History of ESRD Patient missed hemodialysis session sunday Nephrology was notified. History of hyperlipidemia Continue home statin DVT prophylaxis:? Subcu heparin Code status:? Full code Attending Dr. Poon Quality Stroke Does the patient have a stroke diagnosis?: No VTE Prior VTE?: No VTE Risk Level:: Medical - moderate - high VTE Device Contraindication: Treatment Not Indicated VTE Drug Contraindication: N/A - Med Ordered
--- NOTE | 2021-09-17 11:32 | PM.CNCAR ---
History of Present Illness History of Present Illness Date of Service: 09/17/21 Requesting physician: Octavia Quezada Chief complaint: Bradycardia, atrial fibrillation Narrative: 81-year-old gentleman who has end-stage renal disease on hemodialysis and previous CVA He is admitted from hemodialysis yesterday because he was noted to be bradycardic. He said couple of weeks ago he was told the same thing that his heart rate is slow. He was also noted to be in new onset atrial fibrillation. He has no dizziness, lightheadedness or syncope. Heart rate has been in 30s to 40s at rest. He also said that he is feeling more short of breath today. He did not get hemodialysis yesterday because of slow heart rate. Denying any chest discomfort. He is on aspirin and Plavix and I think this is because of peripheral vascular disease. No cardiac catheterization in [facility] at least. [facility] Past Medical History Medical History Macrocytic anemia MDS (myelodysplastic syndrome) Stage 3 chronic kidney disease Social History Social History Alcohol intake: current Alcohol intake frequency: 3 or more drinks per day Alcohol type: hard liquor Patient Tobacco Use Status: Current everyday Tobacco user Advance Directives: Yes Advance Directives Information Provided: No Advance Directives on File: No service: Yes Current occupational status: retired Meds Allergies Allergy/AdvReac Type Severity Reaction Status Date / Time No Known Allergies Allergy Verified 03/29/20 14:40 [No Known Allergies*] Active Medications: Current Medications Acetaminophen (Acetaminophen 325 Mg Tablet) 650 mg PO Q6H PRN PRN Reason: Pain, Mild (Pain Scale 1-3) Aspirin (Aspirin Enteric Coated 81 Mg Tablet.) 81 mg PO DAILY COUNTS INCLUDE 234 BEDS AT THE [facility] Last Admin: 09/17/21 08:01 Dose: 81 mg Documented by: Atorvastatin Calcium (Atorvastatin Calcium 40 Mg Tablet) 40 mg PO BEDTIME COUNTS INCLUDE 234 BEDS AT THE [facility] Last Admin: 09/16/21 22:30 Dose: 40 mg Documented by: Clopidogrel Bisulfate (Clopidogrel Bisulfate 75 Mg Tablet) 75 mg PO DAILY COUNTS INCLUDE 234 BEDS AT THE [facility] Last Admin: 09/17/21 08:01 Dose: 75 mg Documented by: Cyanocobalamin (Cyanocobalamin (Vitamin B-12) 1,000 Mcg Tablet) 1,000 mcg PO DAILY COUNTS INCLUDE 234 BEDS AT THE [facility] Last Admin: 09/17/21 08:00 Dose: 1,000 mcg Documented by: Docusate Sodium (Docusate Sodium 100 Mg Capsule) 100 mg PO BID PRN PRN Reason: Constipation Ferrous Sulfate (Ferrous Sulfate 324 Mg Tablet.) 324 mg PO DAILY COUNTS INCLUDE 234 BEDS AT THE [facility] Last Admin: 09/17/21 08:01 Dose: 324 mg Documented by: Folic Acid (Folic Acid 1 Mg Tablet) 1 mg PO DAILY COUNTS INCLUDE 234 BEDS AT THE [facility] Last Admin: 09/17/21 08:00 Dose: 1 mg Documented by: Heparin Sodium (Porcine) (Heparin Sodium,Porcine 5,000 Unit/Ml Vial) 5,000 unit SUBCUT Q8H COUNTS INCLUDE 234 BEDS AT THE [facility] Last Admin: 09/17/21 02:52 Dose: 5,000 unit Documented by: Magnesium Oxide (Magnesium Oxide 400 Mg Tablet) 400 mg PO DAILY COUNTS INCLUDE 234 BEDS AT THE [facility] Last Admin: 09/17/21 08:00 Dose: 400 mg Documented by: Melatonin (Melatonin 3 Mg Tablet) 6 mg PO BEDTIME PRN PRN Reason: Insomnia Last Admin: 09/17/21 02:37 Dose: 6 mg Documented by: Multivitamins/Vitamin C (Multivitamin Tablet) 1 tab PO DAILY COUNTS INCLUDE 234 BEDS AT THE [facility] Last Admin: 09/17/21 08:01 Dose: 1 tab Documented by: Pharmacy Consult (Consult Rx Perform Med Rec) 1 each MISCELLANE ONCE PRN PRN Reason: Consult order Senna (Sennosides 8.6 Mg Tablet) 17.2 mg PO BEDTIME PRN PRN Reason: Constipation Sevelamer Carbonate (Sevelamer Carbonate Tablet 800 Mg Tablet) 800 mg PO TIDWM COUNTS INCLUDE 234 BEDS AT THE [facility] Last Admin: 09/17/21 08:01 Dose: 800 mg Documented by: Sodium Chloride (0.9 % Sodium Chloride Flush 3 Ml Syringe) 3 ml IVFLUSH QSHIFT COUNTS INCLUDE 234 BEDS AT THE [facility] Last Admin: 09/17/21 06:43 Dose: Not Given Documented by: Thiamine HCl (Thiamine Hcl 100 Mg Tablet) 100 mg PO DAILY COUNTS INCLUDE 234 BEDS AT THE [facility] Last Admin: 09/17/21 08:00 Dose: 100 mg Documented by: Home Medications Medication Instructions Recorded Confirmed Last Taken Type acetaminophen 325 mg tablet 650 mg PO Q6H PRN 03/29/20 09/16/21 Unknown History allopurinol 100 mg tablet 100 mg PO BID 03/29/20 09/16/21 Unknown History aspirin 81 mg tablet 81 mg PO DAILY 03/29/20 09/16/21 Unknown History atorvastatin 40 mg tablet 40 mg PO BEDTIME 03/29/20 09/16/21 Unknown History clopidogrel 75 mg tablet 75 mg PO DAILY 03/29/20 09/16/21 Unknown History ferrous sulfate 325 mg (65 mg 325 mg PO DAILY 03/29/20 09/16/21 Unknown History iron) tablet folic acid 1 mg tablet 1 mg PO DAILY 03/29/20 09/16/21 Unknown History metoprolol succinate 50 mg 50 mg PO DAILY 03/29/20 09/16/21 Unknown History tablet,extended release 24 hr multivitamin 1 tab PO QAM 03/29/20 09/16/21 Unknown History clonidine HCl 0.3 mg tablet 0.3 mg PO SUTUTHSA@0900,2100 09/16/21 09/16/21 Unknown History cyanocobalamin (vitamin B-12) 1,000 mcg PO DAILY 09/16/21 09/16/21 Unknown History 1,000 mcg tablet docusate sodium 100 mg capsule 100 mg PO BID PRN 09/16/21 09/16/21 Unknown History magnesium oxide 400 mg PO DAILY 09/16/21 09/16/21 Unknown History melatonin 3 mg tablet 3 mg PO BEDTIME PRN 09/16/21 09/16/21 Unknown History sevelamer carbonate 800 mg tablet 800 mg PO TID 09/16/21 09/16/21 Unknown History thiamine HCl (vitamin B1) 100 mg 100 mg PO DAILY 09/16/21 09/16/21 Unknown History tablet Physical Exam Vital Signs: Vital Signs: Last Vital Signs Temp 98.2 F 09/16/21 19:34 Pulse 44 L 09/17/21 07:08 Resp 18 09/17/21 07:08 BP 132/57 L 09/17/21 07:08 Pulse Ox 100 09/17/21 07:08 BMI result Body Mass Index 18.4 GENERAL APPEARANCE: in no acute distress, pleasant. NECK: no carotid bruit, no jugular venous distention. SKIN: no suspicious lesions, warm and dry. HEART: no murmurs, irregular rate and rhythm, bradycardic. LUNGS: clear to auscultation bilaterally. ABDOMEN: soft, nontender. EXTREMITIES: no edema. PERIPHERAL PULSES: equal. NEUROLOGIC: No gross deficits, AAO X 3 Objective Labs and Meds Result diagrams: 09/17/21 06:37 09/17/21 06:37 Lab results: Laboratory Results - last 24 hr 09/16/21 09/16/21 09/16/21 14:53 14:53 14:53 WBC 5.5 RBC 3.17 L Hgb 9.9 L Hct 31.3 L MCV 98.7 H MCH 31.2 MCHC 31.6 RDW 21.0 H Plt Count 185 MPV 9.3 L Immature Gran % (Auto) 0.5 H Neut % (Auto) 57.5 Lymph % (Auto) 27.0 [place] % (Auto) 13.0 H Eos % (Auto) 1.5 Baso % (Auto) 0.5 Lymph # (Auto) 1.5 [place] # (Auto) 0.7 Eos # (Auto) 0.1 Baso # (Auto) 0.0 Abs Immat Gran (auto) 0.03 Absolute Neuts (auto) 3.2 Absolute Nucleated RBC 0.000 Nucleated RBC % (auto) 0.0 Smear Tech's Comments PT INR APTT Sodium 130 L Potassium 4.4 Chloride 91 L Carbon Dioxide 28 Anion Gap 15 BUN 21 H Creatinine 4.77 H* Estim Creat Clear Calc 9.9 Estimated GFR 12 Random Glucose 111 Calcium 9.2 Troponin I High Sens 21.5 B-Natriuretic Peptide COVID-19 (JOSE ALFREDO) COVIDLoudeye 09/16/21 09/16/21 09/16/21 14:53 14:53 14:53 WBC RBC Hgb Hct MCV MCH MCHC RDW Plt Count MPV Immature Gran % (Auto) Neut % (Auto) Lymph % (Auto) [place] % (Auto) Eos % (Auto) Baso % (Auto) Lymph # (Auto) [place] # (Auto) Eos # (Auto) Baso # (Auto) Abs Immat Gran (auto) Absolute Neuts (auto) Absolute Nucleated RBC Nucleated RBC % (auto) Smear Tech's Comments PT 11.8 INR 1.0 APTT 36.1 Sodium Potassium Chloride Carbon Dioxide Anion Gap BUN Creatinine Estim Creat Clear Calc Estimated GFR Random Glucose Calcium Troponin I High Sens B-Natriuretic Peptide 1775 H COVID-19 (JOSE ALFREDO) COVIDLoudeye 09/16/21 09/17/21 09/17/21 18:55 06:37 06:37 WBC 4.4 L RBC 2.97 L Hgb 9.5 L Hct 29.3 L MCV 98.7 H MCH 32.0 MCHC 32.4 RDW 20.6 H Plt Count 170 MPV 9.9 Immature Gran % (Auto) 0.7 H Neut % (Auto) 48.5 Lymph % (Auto) 26.5 [place] % (Auto) 21.3 H Eos % (Auto) 2.3 Baso % (Auto) 0.7 Lymph # (Auto) 1.2 [place] # (Auto) 0.9 Eos # (Auto) 0.1 Baso # (Auto) 0.0 Abs Immat Gran (auto) 0.03 Absolute Neuts (auto) 2.1 Absolute Nucleated RBC 0.000 Nucleated RBC % (auto) 0.0 Smear Tech's Comments VERIFIED PT INR APTT Sodium 132 L Potassium 4.1 Chloride 96 Carbon Dioxide 23 Anion Gap 17 BUN 27 H Creatinine 5.46 H* Estim Creat Clear Calc 8.6 Estimated GFR 10 Random Glucose 100 Calcium 8.6 D Troponin I High Sens B-Natriuretic Peptide COVID-19 (JOSE ALFREDO) Negative COVID-19 Clin Com See Note Imaging Radiologist's impression: Impressions Chest X-Ray 09/16/21 15:03 IMPRESSION: Enlarged cardiac silhouette. New small left pleural effusion and adjacent left lung base atelectasis or consolidation. Assessment and Plan (1) Bradycardia: Status: Acute (2) Atrial fibrillation, new onset: Status: Acute Plan Pleasant 81-year-old gentleman who is on hemodialysis and presented from dialysis yesterday with bradycardia and new onset atrial fibrillation with slow ventricular response. He is asymptomatic from AFib point of view and does not have symptomatic bradycardia right now. His blood pressures are normal. He has no dizziness, lightheadedness or previous syncope. He is on Toprol XL 50 as well as clonidine 0.3 mg 2 times a day on Sunday and Sunday. His Toprol-XL was stopped yesterday. I think his clonidine dose would also need to be adjusted. Abruptly stopping coronary is a problem because he may have withdrawal and worsening blood pressures. Currently his heart rate is responding to exercise. I asked him to do leg exercises in bed and his heart rate went up to 50s. I think he should ambulate him with the walker to see how he responds to exercise. If his heart rate response normally with rise in heart rate with exercise and no dizziness or lightheadedness then I think there is no urgent indication for pacemaker. On the other hand if he has dizziness, lightheadedness or his heart rate does not respond to exercise and stays fairly constant then we may have to discuss permanent pacemaker placement. Also there would be some safety questions with him leaving the hospital with bradycardia. He is high risk for stroke and should be anticoagulated. Based on his weight and age I think Eliquis 5 mg twice a day would be a good does for him but this can be confirmed with pharmacy. Stop the baby aspirin as you give Eliquis and leave him on Plavix and Eliquis. Thank you for allowing me to participate in the care of your patient. Please feel free to contact me if you have any questions. Procedures Date of Service Date of Service: 09/17/21
[2021-09-17 12:28] LABS: Glucose, Whole Blood 123 mg/dL (60-115)
--- NOTE | 2021-09-17 16:59 | PC.NURSE ---
pt walked with walker and pulse oximeter, hr staying between 40-44 bpm, ambulating w slow steady gait using walker. pt is asking to leave, does not want to stay due to not getting dialysis today. pt has asked this rn to call son to pick him up. pt is alert and oriented x4. provider aware of pt wanting to leave. this rn called pt son and was verbally berated by him, told this rn dhaval been watching nascar and drinking beers and theres nothing illegal about that! pt told by this rn that son feels unsafe to pick him up.
--- NOTE | 2021-09-17 17:36 | PM.DS ---
DS: Providers Provider Date of Service: 09/17/21 Date of admission: 09/16/21 19:28 Primary care physician: Tonio Briseno MD Consults: 09/16/21 19:28 Consult to Cardiology Routine Consulting Provider: Adam Cordero Reason for consultation: bradycardia Consult to Nephrology Routine Consulting Provider: Tonio Briseno Reason for consultation: ESRD Attending physician on discharge: Ernie Poon Discharging clinician: Octavia Quezada DS: Diagnosis Discharge Diagnosis (1) Bradycardia: Status: Acute (2) Atrial fibrillation, new onset: Status: Acute DS: Summary Hospital Course Hospital Course: 81-year-old male with a past medical history of hypertension, hyperlipidemia, ESRD on hemodialysis, myelodysplastic syndrome; presented to the hospital today with a chief complaint of bradycardia.? Patient went for his routine hemodialysis -the hemodialysis session patient was noted to have slow heart rate; subsequently patient was sent to the ER for further evaluation.?Patient denies any chest pain palpitations lightheadedness or dizziness.?Denies any syncopal events; denies any numbness tingling or focal weakness.?Review of all other systems is negative except mentioned above ER course: Per ER team patient is asymptomatic; on EKG noted to have slow AFib; discussed with cardiology who suggested to hold the froilan blocking agents and admitted to the hospital for observation . Discussed the implications of patient leaving against medical advice including further injury, worsening symptoms and even . Patient reports understanding of this and still wants to leave against medical advice, I discussed the importance of returning to the ER patient does develop symptoms especially with his severe bradycardia. LEFT AMA Bradycardia Patient heart rate 30-50.? EKG showed a slow AFib Patient asymptomatic clonidine dose decreased and metoprolol stopped.? HR in the 40's with ambulation History of ESRD Patient missed hemodialysis session sunday Nephrology consulted, no dialysis this admission History of hyperlipidemia Continue home statin Time Spent with Patient Time attestation: Total time spent providing and/or coordinating discharge services: Discharge coordination time: Greater than 30 minutes Quality: Safe Use of Opioids Does Pt have an Active Cancer Diagnosis on the Problem List?: No Quality: Stroke Does the patient have a stroke diagnosis?: No Physical Exam Vital Signs: Vital Signs: Last Vital Signs Temp 98.1 F 09/17/21 14:34 Pulse 44 L 09/17/21 14:34 Resp 14 09/17/21 14:34 BP 120/72 09/17/21 14:34 Pulse Ox 99 09/17/21 14:34 BMI result Body Mass Index 18.4 LEFT AMA DS: Data Data Completed and Pending Labs on day of discharge: Laboratory Results - last 24 hr 09/16/21 09/17/21 09/17/21 18:55 06:37 06:37 WBC 4.4 L RBC 2.97 L Hgb 9.5 L Hct 29.3 L MCV 98.7 H MCH 32.0 MCHC 32.4 RDW 20.6 H Plt Count 170 MPV 9.9 Immature Gran % (Auto) 0.7 H Neut % (Auto) 48.5 Lymph % (Auto) 26.5 [place] % (Auto) 21.3 H Eos % (Auto) 2.3 Baso % (Auto) 0.7 Lymph # (Auto) 1.2 [place] # (Auto) 0.9 Eos # (Auto) 0.1 Baso # (Auto) 0.0 Abs Immat Gran (auto) 0.03 Absolute Neuts (auto) 2.1 Absolute Nucleated RBC 0.000 Nucleated RBC % (auto) 0.0 Smear Tech's Comments VERIFIED Sodium 132 L Potassium 4.1 Chloride 96 Carbon Dioxide 23 Anion Gap 17 BUN 27 H Creatinine 5.46 H* Estim Creat Clear Calc 8.6 Estimated GFR 10 POC Glucose Random Glucose 100 Calcium 8.6 D COVID-19 (JOSE ALFREDO) Negative COVID-19 Clin Com See Note 09/17/21 12:24 WBC RBC Hgb Hct MCV MCH MCHC RDW Plt Count MPV Immature Gran % (Auto) Neut % (Auto) Lymph % (Auto) [place] % (Auto) Eos % (Auto) Baso % (Auto) Lymph # (Auto) [place] # (Auto) Eos # (Auto) Baso # (Auto) Abs Immat Gran (auto) Absolute Neuts (auto) Absolute Nucleated RBC Nucleated RBC % (auto) Smear Tech's Comments Sodium Potassium Chloride Carbon Dioxide Anion Gap BUN Creatinine Estim Creat Clear Calc Estimated GFR POC Glucose 123 H Random Glucose Calcium COVID-19 (JOSE ALFREDO) COVID-19 Clin Com Discharge Plan Discharge Anticipated Discharge Date/Time: 09/17/21 17:30 Patient Disposition: Left Against Medical Advice Discharge Diagnosis: Bradycardia Atrial fibrillation Referrals: Tonio Briseno MD [Primary Care Provider] - Discharge Medications: Continued multivitamin Tablet 1 tab PO QAM 0RF atorvastatin 40 mg Tablet 40 mg PO BEDTIME 0RF acetaminophen 325 mg Tablet 650 mg PO Q6H PRN (Reason: Pain) 0RF clopidogrel 75 mg Tablet 75 mg PO DAILY 0RF allopurinol 100 mg Tablet 100 mg PO BID 0RF ferrous sulfate 325 mg (65 mg iron) Tablet 325 mg PO DAILY 0RF folic acid 1 mg Tablet 1 mg PO DAILY 0RF aspirin 81 mg Tablet 81 mg PO DAILY 0RF cyanocobalamin (vitamin B-12) 1,000 mcg Tablet 1,000 mcg PO DAILY 0RF thiamine HCl (vitamin B1) 100 mg Tablet 100 mg PO DAILY 0RF melatonin 3 mg Tablet 3 mg PO BEDTIME PRN (Reason: Insomnia) 0RF docusate sodium 100 mg Capsule 100 mg PO BID PRN (Reason: Constipation) 0RF sevelamer carbonate 800 mg Tablet 800 mg PO TID 0RF Rx Instructions: must administer with a meal/food magnesium oxide 400 mg magnesium Tablet 400 mg PO DAILY 0RF Changed clonidine HCl 0.3 mg Tablet 0.1 mg PO SUTUTHSA@0900,2100 Qty: 0 0RF Rx Instructions: DO NOT TAKE ON DIALYSIS DAYS (MWF) Discontinued metoprolol succinate 50 mg Tablet Extended Release 24 Hr 50 mg PO DAILY 0RF Discharge Orders: Discharge Order (Routine); Ordered 09/17/21 Ordered By: Octavia Quezada Diet: advance to usual diet Activity on Discharge: As tolerated Care Plan Goals: LEFT AMA Health Concerns: Bradycardia Atrial fibrillation Plan of Treatment: Return to the ED if you begin to have symptoms of bradycardia including, dizziness, passing out, weakness, ect. calll your primary care provider to schedule an appointment for follow up Stop taking metoprolol your clonidine dose has been lowered Assessment: See discharge summary LEFT AMA Patient Instructions: Bradycardia (ED)
--- NOTE | 2021-09-20 13:44 | CONS_ITS ---
DATE OF SERVICE: 09/17/2021 HISTORY OF PRESENT ILLNESS: I was asked to see the patient to assist in evaluation management of patient's dialysis needs in the setting of coming to the hospital yesterday and not getting his dialysis treatment. He was noted to have a very low heart rates. He was sent over to the hospital to be evaluated. He is being evaluated by Cardiology. Overall, he has no particular complaints and he is not aware of the heart rate being well. He does get dialysis normally Sunday, Sunday, Sunday. PAST MEDICAL HISTORY: Notable for ESRD, myelodysplastic syndrome. MEDICATIONS ON ADMISSION: Noted in the admitting notes. Current medications noted on the JUN. SOCIAL HISTORY: He is a current active smoker. REVIEW OF SYSTEMS: As noted above. PHYSICAL EXAMINATION: VITAL SIGNS: Blood pressure 130/50 with a heart rate in the 40s. HEAD: Atraumatic, normocephalic. NECK: Supple. Mucous membranes moist. LUNGS: Decreased breath sounds at bases. CARDIAC: Regular rate and rhythm. ABDOMEN: Soft. EXTREMITIES: Show trace edema. LABORATORY DATA: Show hemoglobin 9.5, hematocrit 29.3, white blood cell count 4.4. Sodium 132, potassium 4.1, chloride 96, bicarb 22. IMPRESSION: END-STAGE RENAL DISEASE PATIENT NOTED TO HAVE ASYMPTOMATIC BRADYCARDIA. 1. End-stage renal disease. We will dialyze him today and then get back on his normal Sunday, Sunday, Sunday schedule. 2. Bradycardia. He is being evaluated by Cardiology to see if any adjustment in his medications or other interventions are needed. 3. Anemia. 4. Metabolic bone disease. SUGGESTIONS: At this time include continue dialysis today and then back on Sunday, Sunday, Sunday schedule. Continue routine medications unless Cardiology wants to make some changes. MD RAMA To/[place] / [id number]
== END 2021-09-17 17:51 | disposition left against medical advice (07) ==
LOC: HO.ED 17:08 → HO.EDOVER 19:33
PROVIDERS: Admitting Provider Hospitalist; Emergency Provider Emergency Medicine; PCP Internal Medicine Nephrology; Visit Provider Nurse Practitioner Acute Care
DX: R00.1 Bradycardia, unspecified (principal); I48.91 Unspecified atrial fibrillation; N18.6 End stage renal disease; N18.30 Chronic kidney disease, stage 3 unspecified; D46.9 Myelodysplastic syndrome, unspecified; I10 Essential (primary) hypertension; E78.5 Hyperlipidemia, unspecified; I73.9 Peripheral vascular disease, unspecified; I51.7 Cardiomegaly; I45.89 Other specified conduction disorders; J90 Pleural effusion, not elsewhere classified; J98.11 Atelectasis; F17.210 Nicotine dependence, cigarettes, uncomplicated; Z86.73 Personal history of transient ischemic attack (TIA), and cerebral infarction without residual deficits; Z20.822 Contact with and (suspected) exposure to COVID-19; Z99.2 Dependence on renal dialysis; Z79.82 Long term (current) use of aspirin; Z79.899 Other long term (current) drug therapy
CPT/HCPCS: 36415; 71045; 80048; 82947; 83880; 84484; 85025; 85610; 85730; 87635; 93005; 99219; 99284; 99285

== ENCOUNTER → 2023-12-19 13:36 | Outpatient (RCR) | payer MEDICARE, SELFPAY ==
--- NOTE | 2020-03-29 14:34 | PM.HEMONCPN ---
Medical Summary - Medical Summary Date of Service: 04/04/20 Chief complaint: follow-up for: Macrocytic anemia. ACD. Question MDS. Medical Summary: DIAGNOSIS: 1. Macrocytic Anemia. 2. Concern is for MDS. 3. Stage III kidney disease. CURRENT THERAPY: 1. B12 injections monthly. 2. Procrit, initially every 2 weeks, as needed. Last dose November 25, before that was October 27, and before that was September 22. Interval History Interval history: This is a pleasant 79-year-old gentleman, with whom a tele visit was held. He tells me his legs are tired. He has been trying to walk. He noted a bruise on his right hand. It is gradually fading away. He says his energy level is okay, he usually takes a nap in the afternoon. No headache no dizziness. No fever nor chills. He denies any cough nor sputum. He denies any chest pain. He does get occasional short of breath, especially on exertion. No abdominal pain, nausea vomiting, heartburn indigestion. His bowels are moving. Without any gross blood in it. He enjoys a good appetite. His weight is up. He has had easy bruising. He is in good spirits. Rest of the review of systems is unremarkable. Review of Systems - Constitutional Reports system reviewed and no additional complaints, except as documented, Reports fatigue, Reports lack of energy, Reports malaise, Reports weakness, Denies fever(s) - Eyes Reports system reviewed and no additional complaints, except as documented, Denies blurry vision - ENT Reports system reviewed and no additional complaints, except as documented - Cardiovascular Reports system reviewed and no additional complaints, except as documented, Denies chest pain at rest - Respiratory Reports no additional respiratory complaints, Denies chest congestion - Gastrointestinal Reports system reviewed and no additional complaints, except as documented, Denies abdominal pain, Denies change in bowel habits - Genitourinary Genitourinary: Reports no additional male genitourinary complaints, Denies blood in urine - Musculoskeletal Reports system reviewed and no additional complaints, except as documented - Integumentary/Breasts Skin/Breast: Reports no additional skin complaints - Neurologic Reports system reviewed and no additional complaints, except as documented - Psychiatric Reports system reviewed and no additional complaints, except as documented, Denies anxiety - Endocrine Reports no additional endocrine complaints, Denies excessive sweating - Hematologic/Lymphatic Reports system reviewed and no additional complaints, except as documented, Denies easy bleeding - Allergic/Immunologic Reports system reviewed and no additional complaints, except as documented, Denies GI upset with certain foods PMFSH Medical History: Medical History (Last Updated 02/05/20 @ 13:57 by Klaudia Whitehead RN) Macrocytic anemia MDS (myelodysplastic syndrome) Stage 3 chronic kidney disease Functional capacity: independent ambulation Patient : No Home Medications and Allergies Home Medications Medication Instructions Recorded Confirmed Type acetaminophen 650 mg PO Q6H PRN 03/29/20 03/29/20 History allopurinol 100 mg PO BID 03/29/20 03/29/20 History amlodipine 10 mg PO DAILY 03/29/20 03/29/20 History aspirin 81 mg PO DAILY 03/29/20 03/29/20 History atorvastatin 40 mg PO DAILY 03/29/20 03/29/20 History clopidogrel 75 mg PO DAILY 03/29/20 03/29/20 History ferrous sulfate mg 03/29/20 History folic acid 1 mg PO DAILY 03/29/20 03/29/20 History metoprolol succinate 50 mg PO DAILY 03/29/20 03/29/20 History multivitamin 1 tab PO QAM 03/29/20 03/29/20 History torsemide 20 mg PO DAILY 03/29/20 03/29/20 History Allergies Allergy/AdvReac Type Severity Reaction Status Date / Time No Known Allergies Allergy Verified 03/29/20 14:40 [No Known Allergies*] Exam - Constitutional Present: no acute distress - Routine HEENT Exam Head: Present: normal inspection Eye: Present: normal appearance ENT: Present: mucous membranes moist - Routine Neck Exam Present: full ROM - Routine Respiratory Exam Present: CTAB - Routine Cardiovascular Exam Cardiovascular: Present: RRR, S1, S2 - Routine Abdominal Exam Present: soft, nontender - Routine Extremities Exam Present: nontender - Routine Back/Spine/Pelvis Exam Back/Spine: Present: full ROM - Routine Skin Exam Present: intact - Routine Neurological Exam Present: alert, oriented X3 - Routine Psychiatric Exam Present: normal affect Data - Labs CBC & Chem 7: 03/30/20 12:40 03/30/20 12:40 Labs: 02/05/20 10:11 Epoetin Prasanna [Procrit] 40,000 unit SUBCUT ONCE ONE Progress Note: A/P (1) Macrocytic anemia Status: Acute Assessment and plan: 79 year-old gentleman, with history of Macrocytic Anemia. The anemia is multifactorial: 1. He has B12 Deficiency, for which he is on replacement therapy. He was receiving monthly shots, through the [facility]. He has now been switched to oral B12. 2. MDS: He had a bone marrow exam in February of 2016, which revealed: THE BONE MARROW IS OF NORMAL CELLULARITY AND DISPLAYS ACTIVE TRILINEAGE HEMATOPOIESIS. GIVEN THE MACROCYTOSIS AND OTHER NON-SPECIFIC FINDINGS DETAILED ABOVE, AN EARLY MYELODYSPLASTIC SYNDROME IS WITHIN THE DIFFERENTIAL DIAGNOSIS BUT CANNOT BE DIAGNOSED WITH CERTAINTY BASED ON THE FEATURES OBSERVED AT THIS TIME. WBC 4.8 (Dec 22, RBC 2.68 L (Dec 22, HGB 8.8 L (Dec 22, HCT 28.1 L (Dec 22, MCV 104.9 (Dec 22, MCH 32.8 (Dec 22, MCHC 31.3 (Dec 22, PLATELET CT 176 (Dec 22, 3. In addition, he has stage III kidney disease. Anemia is likely a combination of all of the above. He was started on Procrit back in September 2017, pre-operatively, to bring his blood count up. His hemoglobin had remained stable, above 11 g for few months. However he was restarted on Procrit, few months ago. He does feel rather tired. His legs feel weak. He has to take naps during the day. Hemoglobin has dropped, 8.8, today. He will continue to recieve Procrit therapy for stage III ACD and MDS, based upon has numbers. I have requested records from [facility] to check his most recent blood count. PLAN: Hemoglobin from today is low, at 7.9. H He will be receiving the Procrit. He will return in 1 month for labs and to consider further Procrit. He will continue on the B12 and Folic Acid. Will continue to monitor his blood count. He will keep me posted about his progress. He will return for a follow-up in 3 months. Thank you, CC: Dr. Miya Razo. At the [facility]. Code Status FULL CODE Copies To: - Time Spent With Patient Total time spent is greater than 50% in coordination of care (as documented) at patient's floor/unit and/or counseling patient: 25 - 35 minutes
[2020-03-30 12:47] LABS: MANUAL DIFF FLAG NO
[2020-03-30 13:17] LABS: Basophils Percent Auto 0.6 % (0-2); Eosinophils Absolute Auto 0.3 X10*3/uL (0.0-0.4); Eosinophils Percent Auto 6.6 % (0-4); Hematocrit 25.3 % (42-52); Hemoglobin 7.9 g/dl (14.0-18.0); Imm Gran Abs Auto 0.02 X10*3/uL (0.00-0.03); Imm Gran Pct Auto 0.4 % (0.0-0.4); Lymphocytes Absolute Auto 1.3 X10*3/uL (1.2-4.9); Lymphocytes Percent Auto 27.2 % (20-40); Mean Corpuscular HGB Conc 31.2 g/dl (31.0-36.0); Mean Corpuscular Hemoglobin 31.2 pg (27.0-33.0); Mean Platelet Volume 9.4 fL (9.4-12.4); Monocytes Absolute Auto 0.6 X10*3/uL (0.1-1.2); Monocytes Percent Auto 12.3 % (2-11); Neutrophils Absolute Auto 2.6 X10*3/uL (2.0-8.3); Neutrophils Percent Auto 52.9 % (45-73); Platelet Count 240 X10*3/uL (160-400); Red Blood Count 2.53 X10*6/uL (4.60-5.80); Red Cell Distribution Width 15.6 % (11.0-16.0); White Blood Count 4.9 X10*3/uL (4.8-10.8)
[2020-03-30] MEDS: Epoetin Alfa 40,000 UNIT/ML VIAL 40000 UNIT SUBCUT (13:27)
--- NOTE | 2020-03-30 13:36 | MHC.HEMONC ---
pt CBC noted. Pt does have fatigue but not particularly worse. HGB 7.9. Dr Frank aware and spoke to pt and his . She will call with his condition next week.
[2020-03-30 13:44] LABS: Alanine Aminotransferase 9 U/L (0-40); Albumin Level 3.6 g/dL (3.5-5.0); Alkaline Phosphatase 106 U/L (39-117); Anion Gap 15 (12-20); Aspartate Amino Transferase 16 U/L (5-37); Bilirubin Total 0.4 mg/dL (0.0-1.0); Blood Urea Nitrogen 43 mg/dL (9-16); Calcium 8.3 mg/dL (8.4-10.2); Carbon Dioxide 19 mmol/L (22-29); Chloride 109 mmol/L (96-108); Estimated Glomerular Filt Rate 17; Glucose Random 119 mg/dL (60-115); Iron 65 mcg/dL (45-160); Percent Iron Saturation 28 % (15-50); Potassium 4.7 mmol/l (3.3-5.1); Sodium 138 mmol/L (135-145); Total Iron Binding Capacity 232 mcg/dL (228-428); Total Protein 6.8 g/dL (6.5-8.0); Unsaturated Iron Binding 167 ug/dL
[2020-03-30 14:06] LABS: Ferritin 692 ng/mL (20-250)
== END | disposition home or self-care (01) ==
LOC: HO.ONC 03-29 14:49
PROVIDERS: PCP Internal Medicine; Visit Provider Internal Medicine Medical Oncology
DX: D46.9 Myelodysplastic syndrome, unspecified (principal); N18.30 Chronic kidney disease, stage 3 unspecified; D63.1 Anemia in chronic kidney disease
CPT/HCPCS: 36415; 80053; 82728; 83540; 85025; 96372; 99214; J0885